=== PATIENT | male | born 1990 ===

== ENCOUNTER 2023-07-05 10:02 | Outpatient (REF) | payer MEDICAID, SELFPAY ==
[2023-07-05 11:39] LABS: Estimated Average Glucose 103 mg/dL; Hemoglobin A1c % 5.2 % (<6.0)
[2023-07-05 12:29] LABS: Hepatitis A Antibody IgG REACTIVE (Nonreactive); ~Hepatitis A Antibody IgG 11.39 S/CO (0.00-0.99)
[2023-07-05 12:34] LABS: Alanine Aminotransferase 27 U/L (0-40); Albumin Level 4.5 g/dL (3.5-5.0); Alkaline Phosphatase 50 U/L (39-117); Anion Gap 13 (12-20); Aspartate Amino Transferase 21 U/L (5-37); Bilirubin Total 0.4 mg/dL (0.0-1.0); Blood Urea Nitrogen 16 mg/dL (9-16); Calcium 10.3 mg/dL (8.4-10.2); Carbon Dioxide 25 mmol/L (22-29); Chloride 105 mmol/L (96-108); Cholesterol 238 mg/dL (<200); Estimated Glomerular Filt Rate > 60; Glucose Random 90 mg/dL (60-115); HDL Cholesterol 43 mg/dL (>40); LDL Cholesterol Calculated 176 mg/dL (<100); Potassium 4.2 mmol/L (3.3-5.1); Sodium 139 mmol/L (135-145); Total Protein 7.5 g/dL (6.5-8.0); Triglycerides 98 mg/dL (<150)
[2023-07-05 12:35] LABS: HBS Num1 0.72 mIU/mL (0-7.99); HBc Num1 0.08 S/CO (0.00-0.79); HIV AB/AG Nonreactive (Nonreactive); HIV Num 1 0.05 S/CO (0.00-0.99); Hepatitis B Core Antibody Nonreactive (Nonreactive); Hepatitis B Surface Antigen Negative (Negative); ~HepC Num1 0.14 S/CO (0.00-0.79); ~Hepatitis B Surface Antibody NONREACTIVE (Nonreactive); ~Hepatitis C Antibody Nonreactive (Nonreactive)
[2023-07-05 12:40] LABS: Reflex LDLD? No; TSH reflex Free T4 1.11 uIU/mL (0.32-4.0)
== END 2023-07-05 10:03 | disposition home or self-care (01) ==
LOC: HO.HHCL 10:02
PROVIDERS: Visit Provider Family Medicine
DX: Z01.84 Encounter for antibody response examination (principal); E66.09 Other obesity due to excess calories; Z11.3 Encounter for screening for infections with a predominantly sexual mode of transmission; Z68.32 Body mass index [BMI] 32.0-32.9, adult
CPT/HCPCS: 36415; 80053; 80061; 83036; 84443; 86704; 86706; 86708; 86803; 87340; 87389

== ENCOUNTER 2023-12-18 15:09 | Outpatient (REF) | payer MEDICAID, SELFPAY ==
[2023-12-18 17:01] LABS: Cholesterol 224 mg/dL (<200); HDL Cholesterol 39 mg/dL (>40); LDL Cholesterol Calculated 142 mg/dL (<100); Triglycerides 216 mg/dL (<150)
[2023-12-18 17:23] LABS: Reflex LDLD? No
== END 2023-12-18 15:10 | disposition home or self-care (01) ==
LOC: HO.HHCL 15:09
PROVIDERS: Visit Provider Family Medicine
DX: E78.00 Pure hypercholesterolemia, unspecified (principal)
CPT/HCPCS: 36415; 80061

== ENCOUNTER 2024-05-08 13:14 | Outpatient (REF) | payer MEDICAID, SELFPAY ==
--- OUTSIDE RECORDS SUMMARY | 2024-05-08 16:04 | XMS_ITS | Encounter Summary ---
Author Organization [employer] Address [address] [facility] 7t [place] [address] Care Team Providers Care Gas Engine Operator Compressors Name Role Phone Adelina Márquez MD Primary Care Provider [phone] Encounter Details Date Type Department Care Team (Latest Contact Info) Description 07/05/2023 Orders Only [facility] MEDICINE [address] [place], [place] [phone] Adelina Márquez MD [address] [place], [place] [phone] Hypercholesterolemia (Primary Dx) Social History Tobacco Use Types Packs/Day Years Used Date Smoking Tobacco: Never Smokeless Tobacco: Never Depression Answer Date Recorded Patient Health Questionnaire-9 Score 0 07/05/2023 Patient Health Questionnaire-9 Score 0 07/05/2023 Last PHQ-9: Questionnaire Data Not on file 0 07/05/2023 Housing Stability Answer Date Recorded What is your housing situation today? I have sanket rodriguez 06/27/[address] you li ve. Do you have problems with any of the following? None of the above 06/27/2023 Food Insecurity Answer Date Recorded Within the past 12 months, y ou worried that your food would run out before you got money to buy more: Never True 06/27/2023 Within the past 12 months,th e food you bought just didn't last and you didn't have enough money to get more: Never True Transportation Answer Date Recorded In the past 12 months, has l ack of transportation kept you from medical appts, meetings, work or from getting things needed for daily living? No 06/27/2023 Utilities Answer Date Recorded In the past 12 months, has t he electric, gas, oil or water company threatened to shut off services in your home? No 06/27/2023 Depression Answer Date Recorded Patient Health Questionnaire-2 Score 0 07/05/2023 Sex and Gender Information Value Date Recorded Sex Assigned at Male 10/02/2022 9:06 AM EDT Legal Sex Male 1:45 PM EDT Gender Identity Male 10/02/2022 9:06 AM EDT Sexual Orientation Straight 06/28/2023 9: 35 AM EDT documented as of this encounter Plan of Treatment Not on file documented as of this encounter Procedures Procedure Name Priority Date/Time Associated Diagnosis Comments LIPID PANEL WITH REFLEX TO DIRECT LDL Routine 12/18/2023 3:15 PM EDT Hypercholesterolemi a documented in this encounter Results * (ABNORMAL) Lipid Panel with Reflex to Direct LDL (12/18/2023 3:15 PM EDT) Triglycerides 216(H) <150 mg/dL [facility] Comment:Desirable Triglyceri de: less than 150 mg/dLBorderline High Triglyceride 150-199 mg/dLHigh Triglyceride: 200-499 mg/dLVery High Triglyceride: greater than or equal to 5OO mg/dL Cholesterol 224(H) <200 mg/dL [facility] Comment:Desirable Cholestero l: less than 200 mg/dLBorderline High Cholesterol: 200-239 mg/dLHigh Cholesterol: greater than 239 mg/dL LDL Cholesterol Calculated 142(H) <100 mg/dL [facility] Comment:Desirable LDL: less than 100 mg/dLNear Optimal/Above Optimal LDL: 110- 129 mg/dLBorderline High LDL: 130-159 mg/dLHigh LDL: 160-189 mg/dLVery High LDL: greater than or equal to 190 mg/dL HDL Cholesterol 39(L) >40 mg/dL [facility] Comment:Desirable HDL: great er than 40 mg/dL Note: This HDL assay may give artificially low results in patients with liver disease. Blood 12/18/2023 3:15 PM EDT 12/18/2023 4:20 PM EDT us Adelina Márquez MD LAB BLOOD ORDERABLES Final Resul t [facility] [address] [place] [phone] [phone] documented in this encounter Visit Diagnoses Diagnosis Hypercholesterolemia- Primary Pure hypercholesterolemia documented in this encounter Additional Health Concerns Assessment Noted Time PHQ-9 Depression Total Score: 0 07/05/19 24 9:27 AM EDT documented as of this encounter Care Teams Gas Engine Operator Compressors Relationship Specialty Start Date End Date Adelina Márquez MD [address] [place] [phone] PCP - General Family Medicine 07/05/23 documented as of this encounter
--- OUTSIDE RECORDS SUMMARY | 2024-05-08 16:04 | XMS_ITS | Encounter Summary ---
Author Organization [employer] Address [address] [facility] 7t [place] [address] Care Team Providers Care Front Office Help Name Role Phone Adelina Márquez MD Primary Care Provider [phone] Encounter Details Date Type Department Care Team ([facility] st Contact Info) Description 03/26/2024 Telephone [facility] MEDICINE [address] [place], [place] [phone] Adelina Márquez MD [address] [place], [place] [phone] Social History Tobacco Use Types Packs/Day Years [...] on file documented as of this encounter Visit Diagnoses Not on filedocumented in this encounter Additional Health Concerns Assessment Noted Time PHQ-9 Depression Total Score: 0 07/05/19 9:27 AM EDT documented as of this encounter Care Teams Front Office Help Relationship Specialty Start Date End Date Adelina Márquez MD [address] [place] [address] PCP - General Family Medicine 07/05/23 documented as of this encounter
--- OUTSIDE RECORDS SUMMARY | 2024-05-08 16:04 | XMS_ITS | Clinical Summary ---
Author Organization [facility] Address [address] [place] [address] Support Name Relationship Address Phone Rach Slaughter Spouse [address] [place] [address] Care Team Providers Care Lockstitch Binder Name Role Phone Unavailable Primary Care Provider Unavailabl e Source Comments PLEASE NOTE, if this patient is a minor, it may be UNLAWFUL to discuss sensitive information that is contained in these records (such as FAMILY PLANNING, MENTAL HEALTH or SUBSTANCE ABUSE) with the minor patient's parent or other person without the patient's specific authorization.[facility] Allergies No known active allergies Medications MAG HYDROX/AL HYDROX/SIMETH (MAALOX/DIPHENHY DRAMINE SYRUP 1:1)Indications: Aphthous ulcer Take 15 mL by mouth 1 to 3 (one to three) times daily as needed (as needed). 300 mL 0 08/11/2015 Active multivitamin capsuleIndicatio ns:Aphthous ulcer Take 1 Cap by mouth once daily. 100 Cap 3 08/11/2015 Active Active Problems No known active problems Social History Tobacco Use Types Packs/Day Years Used Date Smoking Tobacco: Never Alcohol Use Standard Drinks/Week Comments Not Asked 0 (1 standard drink = 0.6 oz pur e alcohol) Sex and Gender Information Value Date Recorded Sex Assigned at Not on file Legal Sex Male 7:28 PM PDT Gender Identity Not on file Sexual Orientation Not on file Last Filed Vital Signs Vital Sign Reading Time Taken Comments Blood Pressure 118/78 08/11/2015 7:13 PM EDT Pulse 70 08/11/2015 7:13 PM EDT Temperature 36.5 ??C (97.7 ??F) 08/11/2015 7:13 PM ED T Respiratory Rate 20 08/11/2015 7:13 PM EDT Oxygen Saturation - - Inhaled Oxygen Concentration - - Weight 81.6 kg (180 lb) 08/11/2015 7:13 PM EDT Height - - Body Mass Index - - Plan of Treatment Not on file Insurance [place] [employer]
--- OUTSIDE RECORDS SUMMARY | 2024-05-08 16:04 | XMS_ITS | Clinical Summary ---
Author Organization [employer] Address [address] [place] [address] 7t [place] [address] Care Team Providers Care Basketball Scout Name Role Phone Adelina Márquez MD Primary Care Provider Allergies No known active allergies Medications famotidine (Pepcid) 20 MG tablet Take 1 tablet (20 mg) by mouth 2 times daily. 60 tablet 2 05/06/2024 Active Active Problems Problem Noted Date Diagnosed Date H. pylori infection 05/06/2024 Obesity 07/05/2023 Assessment & Plan (12/18/2023 4:14 PM EDT): - work on lifestyle modifications - patient states he will increase physical activity Assessment & Plan (07/05/2023 9:47 AM EDT): - work on lifestyle modifications - patient states he will increase physical activity Problem of both ears 07/05/2023 Assessment & Plan (12/18/2023 4:14 PM EDT): - monitor at this time Assessment & Plan (07/05/2023 9:47 AM EDT): - monitor at this time Hypercholesterolemia 07/05/2023 Assessment & Plan (12/18/2023 2:58 PM EDT): - last lipid profile 07/05/23 - patient chose to improve lifestyle modifications - will repeat lab today, if LDL is above 180 will consider starting pharmacological treatment Encounters Date Type Department Care Team Description 05/06/2024 9:40 AM EST Office Visit [facility] [place] [address] Jose E Perez MD Gastroesophageal reflux disease, unspecified whether esophagitis present (Primary Dx); H. pylori infection 03/31/2024 Telephone [facility] [place] [phone] Adelina Márquez MD Referral 03/26/2024 Telephone [facility] [place] [phone] Adelina Márquez MD Referral 03/26/2024 Telephone [facility] [place] [facility] [place] [phone] Adelina Márquez MD from Last 3 Months Immunizations Name Administration Dates Next Due Tdap 02/11/2018 Social History Tobacco Use Types Packs/Day Years Used Date Smoking Tobacco: Never Smokeless Tobacco: Never Tobacco Cessation:Counseling Given: Not Answered Depression Answer Date Recorded Patient Health Questionnaire-9 Score 0 07/05/2023 Patient Health Questionnaire-9 Score 0 07/05/2023 Last PHQ-9: Questionnaire Data Not on file 0 07/05/2023 Housing Stability Answer Date Recorded What is your housing situation today? I have sanketangelito rodriguez 06/27/[address] you [...] Orientation Straight 06/28/2023 9: 35 AM EDT Last Filed Vital Signs Vital Sign Reading Time Taken Comments Blood Pressure 111/66 05/06/2024 9:46 AM EST Pulse 66 05/06/2024 9:46 AM EST Temperature 36.9 ??C (98.5 ??F) 05/06/2024 9:46 AM ES T Respiratory Rate 18 05/06/2024 9:46 AM EST Oxygen Saturation 98% 05/06/2024 9:46 AM EST Inhaled Oxygen Concentration - - Weight 90.2 kg (198 lb 12.8 oz) 05/06/2024 9:46 AM EST Height 171 cm (5' 7.32 ) 07/05/2023 9:26 AM EDT Body Mass Index 30.84 07/05/2023 9:26 AM EDT Plan of Treatment Health Maintenance Due Date Last Done Comments Family Planning (PISQ) 08/30/2006 Hepatitis B Vaccines (1 of 3 - 19+ 3-dose series) 08/30/2010 COVID-19 Vaccine (2023-2 5 season) 2023 Influenza Vaccine (#1) 2023 SDOH Screening 06/26/2024 06/27/2023 Depression Screening 07/04/2024 07/05/2023, 07/05/2023 Alcohol/Substance Use Screening 12/17/2024 12/18/2023 Tobacco Screening 05/06/2025 05/06/2024 DTaP/Tdap/Td Vaccines (2 - T d or Tdap) 02/12/2028 02/11/2018 Lipid Panel 12/17/2028 12/18/2023, 07/05/2023 Zoster Vaccines (1 of 2) 08/30/2041 RSV Patients and Patients Aged 60 years or older (1 - 1-dose 75+ series) 08/30/2066 HIV Screening Completed 07/05/2023 Hepatitis C Screening Completed 07/05/2023 HIB Vaccines Aged Out No longer eligi ble based on patient's age to complete this topic HPV Vaccines Aged Out No longer eligi ble based on patient's age to complete this topic Hepatitis A Vaccines Aged Out No long er eligible based on patient's age to complete this topic IPV Vaccines Aged Out No longer eligi ble based on patient's age to complete this topic Meningococcal Vaccine Aged Out No chikis eligio eligible based on patient's age to complete this topic Pneumococcal Vaccine: Pediatrics (0 to 5 Years) and At-Risk Patients (6 to 49) Years) Aged Out No longer eligible b ased on patient's age to complete this topic RSV under 20 months Aged Out No longe r eligible based on patient's age to complete this topic Rotavirus Vaccines Aged Out No longer eligible based on patient's age to complete this topic Procedures Procedure Name Priority Date/Time Associated Diagnosis Comments LIPID PANEL WITH REFLEX TO DIRECT LDL Routine 12/18/2023 3:15 PM EDT Hypercholesterolemia HEPATITIS C AB W/REFL TO HCV RNA, QN, PCR Routine 07/05/2023 10:05 AM EDT Routine screening for STI (sexually transmitted infection) HIV 1/2 ANTIGEN/ANTIBODY, FOURTH GENERATION W/RFL Routine 07/05/2023 10:05 AM EDT Routine screening for STI (sexually transmitted infection) from Last 3 Months or Most Recently Relevant to Health Maintenance Results * (ABNORMAL) Lipid Panel with Reflex to Direct LDL (12/18/2023 3:15 PM EDT) Triglycerides 216(H) <150 mg/dL [facility] Comment:Desirable Triglyceri de: less than 150 mg/dLBorderline High Triglyceride 150-199 mg/dLHigh Triglyceride: 200-499 mg/dLVery High Triglyceride: greater than or equal to 5OO mg/dL Cholesterol 224(H) <200 mg/dL [facility] Comment:Desirable Cholestero l: less than 200 mg/dLBorderline High Cholesterol: 200-239 mg/dLHigh Cholesterol: greater than 239 mg/dL LDL Cholesterol Calculated 142(H) <100 mg/dL [facility] Comment:Desirable LDL: less than 100 mg/dLNear Optimal/Above Optimal LDL: 110- 129 mg/dLBorderline High LDL: 130-159 mg/dLHigh LDL: 160-189 mg/dLVery High LDL: greater than or equal to 190 mg/dL HDL Cholesterol 39(L) >40 mg/dL [facility] Comment:Desirable HDL: great er than 40 mg/dL Note: This HDL assay may give artificially low results in patients with liver disease. Blood 12/18/2023 3:15 PM EDT 12/18/2023 4:20 PM EDT us Adelina Márquez MD LAB BLOOD ORDERABLES Final Resul t Performing Organization Address [facility] Co de Phone Number [facility] [address] [place] [phone] * Hepatitis C Antibody with Reflex to HCV, RNA, Quantitative, Real-Time PCR (07/05/2023 10:05 AM EDT) Hepatitis C Antibody Nonreactive Nonreactive [facility] Comment:Antibodies to HCV no t detected; does not exclude early acuteHCV infection. Blood Venous blood specimen / Unknown 07/05/2023 10:05 AM EDT 07/05/2023 11:28 AM EDT us Adelina Márquez MD LAB BLOOD ORDERABLES Final Resul t Performing Organization Address [facility] Co de Phone Number [facility] [address] [place] [phone] * HIV-1/2 Antigen and Antibodies, Fourth Generation, with Reflexes (07/05/2023 10:05 AM EDT) HIV AB/AG Nonreactive Nonreactive [facility] Comment:HIV-1 p24 Ag and/or HIV-1/HIV-2 Ab not detected.A test result that is nonreactive does not exclude thepossibility of exposure to or infection with HIV-1 and/orHIV-2. Nonreactive results in this assay for individualswith prior exposure to HIV-1 and/or HIV-2 may be due toantigen and antibody levels that are below the limit ofdetection of this assay.The [employer] HIV Ag/Ab Combo assay result andsupplemental assay results should be interpreted inconjunction with the patient's clinical presentation,history and other laboratory results. If the results areinconsistent with clinical evidence, additional testing issuggested to confirm the result. Blood Venous blood specimen / Unknown 07/05/2023 10:05 AM EDT 07/05/2023 11:28 AM EDT Adelina Márquez MD LAB BLOOD ORDERABLES Final Resul t [facility] [address] [place] [address] [phone] from Last 3 Months or Most Recently Relevant to Health Maintenance Insurance [employer] FULL Care Teams Basketball Scout Relationship Specialty Start Date End Date Adelina Márquez MD [address] [place] [address] PCP - General Family Medicine 07/05/23
--- OUTSIDE RECORDS SUMMARY | 2024-05-08 16:04 | XMS_ITS | Encounter Summary ---
Author Organization [employer] Address [address] [facility] 7t [place] [address] Care Team Providers Care Bead Trimmer Name Role Phone Adelina Márquez MD Primary Care Provider [phone] Reason for Referral * Consultation (Routine) - Authorized Specialty Diagnoses / Procedures Referred By Carlos luciano Referred To Contact Gastroenterology Diagnoses Gastroesophageal reflux disease, unspecified whether esophagitis present Jose E Perez MD [address] [place] [phone] Phone: tel: fax: [facility] [address] [place], [place] Phone: tel: fax: Referral ID Status Reason Start Date Expiration Date Visits Requested Visits Authorized [id number] Authorized Specialty Services Required 05/06/2024 05/06/2025 6 6 Reason for Visit * Reason Comments GERD Encounter Details Date Type Department Care Team (Latest Contact Info) Description 05/06/2024 9:40 AM EST Office Visit [facility] [address] [place] [phone] Jose E Perez MD [address] [place] [address] Gastroesophageal reflux disease, unspecified whether esophagitis present (Primary Dx); H. pylori infection Social History Tobacco Use Types Packs/Day Years [...] AM EDT documented as of this encounter Last Filed Vital Signs Vital Sign Reading [...] 12.8 oz) 05/06/2024 9:46 AM EST Height - - Body Mass Index 30.84 07/05/2023 9:26 AM EDT documented in this encounter Progress Notes * Jose E Perez MD - 05/06/2024 9:40 AM EST Subjective Patient ID: Rajeev Simon is a 33 y.o. male. School Office Assistant: Asuncion WRIGHT Rajeev had onset of epigastric pain 02/2024, states he was seen in [place] and was diagnosed with H. pylori, treated with medication for 2 weeks. He no longer has pain, but has acid reflux when he eats. Asymptomatic when not eating. No h/o abd surgery, n/v/d, fever. Lives with . Has no children. Never smoked. Occasional EtOH. No illicit substances. Works buying and selling trucks. Patient Active Problem List Diagnosis Obesity Problem of both ears Hypercholesterolemia The following portions of the chart were reviewed this encounter and updated as appropriate: Review of Systems Constitutional: Negative for fever. Respiratory: Negative for shortness of breath. Cardiovascular: Negative for chest pain. Gastrointestinal: Negative for abdominal pain. Skin: Negative for rash. Neurological: Negative for headaches. Objective Physical Exam Constitutional: Appearance: Normal appearance. HENT: Nose: Nose normal. Mouth/Throat: Mouth: Mucous membranes are moist. Pharynx: Oropharynx is clear. Eyes: Conjunctiva/sclera: Conjunctivae normal. Pupils: Pupils are equal, round, and reactive to light. Cardiovascular: Rate and Rhythm: Normal rate and regular rhythm. Heart sounds: No murmur heard. Pulmonary: Effort: Pulmonary effort is normal. Breath sounds: Normal breath sounds. Abdominal: General: Abdomen is flat. Palpations: Abdomen is soft. Tenderness: There is no abdominal tenderness. There is no guarding or rebound. Musculoskeletal: General: Normal range of motion. Cervical back: No tenderness. Skin: Findings: No rash. Neurological: Mental Status: He is alert. Gait: Gait is intact. Psychiatric: Mood and Affect: Mood normal. Behavior: Behavior normal. Procedures Assessment/Plan Diagnoses and all orders for this visit: Gastroesophageal reflux disease, unspecified whether esophagitis present Repeat H. pylori stool antigen ordered. Will call patient with results Prescribed Pepcid. Referred to GI. - Helicobacter pylori Antigen, EIA, Stool; Future Other orders - famotidine (Pepcid) 20 MG tablet; Take 1 tablet (20 mg) by mouth 2 times daily. documented in this encounter Plan of Treatment Scheduled Orders Name Type Priority Associated Diagnoses Orde r Schedule Helicobacter pylori??Antigen, EIA, Stool Lab Routine Gastroesophageal reflux disease, unspecified whether esophagitis present Expected: 05/06/2024 (Approximate), Expires: 05/06/2025 Scheduled Referrals Name Type Priority Associated Diagnoses Order Schedule Referral to Gastroenterology Outpatient Referral Routine Gastroesophageal reflux disease, unspecified whether esophagitis present Expected: 05/06/2024 (Approximate), Expires: 05/06/2025 documented as of this encounter Visit Diagnoses Diagnosis Gastroesophageal reflux disease, unspecified whether esophagitis present- Primary H. pylori infection Helicobacter pylori (H. pylori) documented in this encounter Additional Health Concerns Assessment Noted Time PHQ-9 Depression Total Score: 0 07/05/19 9:27 AM EDT documented as of this encounter Care Teams Bead Trimmer Relationship Specialty Start Date End Date Adelina Márquez MD [address] [place] [phone] PCP - General Family Medicine 07/05/23 documented as of this encounter
== END 2024-05-08 13:15 | disposition home or self-care (01) ==
LOC: HO.HHCLNP 13:14
PROVIDERS: Visit Provider Emergency Medicine
DX: K21.9 Gastro-esophageal reflux disease without esophagitis (principal)
CPT/HCPCS: 87338